=== PATIENT | male | born 1950 | race Caucasian/White ===

== ENCOUNTER 2020-04-11 12:17 | Emergency (ER) | payer OTHER | END 2020-04-11 13:16 | disposition home or self-care (01) | LOC: JVIRT 12:17 | DX: U07.1 COVID-19 (principal) | CPT/HCPCS: C9803; G2012-GT; U0003 ==

== ENCOUNTER 2020-04-13 12:22 | Emergency (ER) | payer OTHER ==
[2020-04-13] MEDS ORDERED: CASIRIVIMAB (REGN10933) 1,200 MG, IMDEVIMAB (REGN10987) 1,200 MG in SODIUM CHLORIDE 230 ML IVPB ONE (14:00)
[2020-04-13 14:52] LABS: HEMATOCRIT 46.5 % (35.4-49); HEMOGLOBIN 15.7 GM/dL (11.7-16.9); MCH 29.2 pg (25.7-33.7); MCHC 33.8 g/dl (32.0-35.9); MEAN CELL VOLUME 86.4 fl (80-96); MEAN PLT VOLUME 9.7 fl (7.5-11.1); PLATELET COUNT 163 K/MM3 (134-434); RBC 5.38 M/mm3 (4.00-5.60); RDW 13.5 % (11.9-15.9); WHITE BLOOD COUNT 4.2 K/mm3 (4.0-10.0)
[2020-04-13 15:13] LABS: POTASSIUM 4.6 mmol/L (3.5-5.1)
[2020-04-13 15:14] LABS: BLOOD UREA NITROGEN 14.9 mg/dL (7-18); CALCIUM 8.7 mg/dL (8.5-10.1)
[2020-04-13 15:18] LABS: CREATININE 1.2 mg/dL (0.55-1.3)
[2020-04-13 16:42] VITALS: TEMP 98
[2020-04-13 17:32] VITALS: BP 115/69; PULSE 70
== END 2020-04-13 17:32 | disposition home or self-care (01) ==
LOC: JER 12:22 → JCOVINFU 12:22
DX: U07.1 COVID-19 (principal)
CPT/HCPCS: 36415; 80048; 85027; 99284-25; M0243; Q0243

== ENCOUNTER 2021-04-18 11:23 | Observation (INO) | payer OTHER ==
[2021-04-18 12:39] LABS: BASO % 0.8 % (0-2.0); EOS % 2.6 % (0-4.5); HEMATOCRIT 44.9 % (35.4-49); HEMOGLOBIN 15.2 GM/dL (11.7-16.9); LYMPH % 15.4 % (8-40); MCH 28.9 pg (25.7-33.7); MCHC 33.8 g/dl (32.0-35.9); MEAN CELL VOLUME 85.5 fl (80-96); MEAN PLT VOLUME 8.5 fl (7.5-11.1); MONO % 7.5 % (3.8-10.2); NEUT % 73.7 % (42.8-82.8); PLATELET COUNT 236 10^3/uL (134-434); RBC 5.25 M/mm3 (4.00-5.60); RDW 13.9 % (11.9-15.9); WHITE BLOOD COUNT 6.8 K/mm3 (4.0-10.0)
[2021-04-18 12:52] LABS: ACTIVATED PTT 27.3 SECONDS (25.2-36.5); INR 0.97 (0.83-1.09); PROTHROMBIN TIME (PATIENT) 11.2 SEC (9.7-13.0)
[2021-04-18 12:55] LABS: CHLORIDE 109 mmol/L (98-107); SODIUM 142 mmol/L (136-145)
[2021-04-18 12:57] LABS: CALCIUM 9.1 mg/dL (8.5-10.1)
[2021-04-18 12:58] LABS: ALBUMIN 3.9 g/dl (3.4-5.0); ANION GAP 5 MMOL/L (8-16); BLOOD UREA NITROGEN 20.8 mg/dL (7-18); CO2 29 mmol/L (21-32); GLUCOSE,RANDOM 92 mg/dL (74-106)
[2021-04-18 13:01] LABS: CHOLESTEROL 168 mg/dL (50-200); CREATININE 1.2 mg/dL (0.55-1.3); SGOT/AST 17 U/L (15-37); SGPT/ALT 48 U/L (13-61)
[2021-04-18 13:02] LABS: LDL CHOLESTEROL (ONLY SJRH) 109 mg/dL (5-100); TOT PROT 7.3 g/dl (6.4-8.2); TRIGLYCERIDES 146 mg/dL (0-150)
[2021-04-18 13:03] LABS: ALK PHOS 80 U/L (45-117); BILIRUBIN,TOTAL 0.6 mg/dL (0.2-1)
[2021-04-18 13:05] LABS: HDL CHOLESTEROL 35 mg/dL (40-60)
[2021-04-18] MEDS ORDERED: MAGNESIUM SULF 50% (8.12 MEQ/2 ML-1 GM VIAL) IVPB ONE (13:05)
[2021-04-18] MEDS ORDERED: MAGNESIUM SULFATE IN WATER 2 GM/50 ML IVPB IVPB ONE (13:21)
[2021-04-18] MEDS ORDERED: levETIRAcetam 500 MG/5 ML INJECTION VIAL IVPB ONE ×2 (14:04→14:14)
[2021-04-18 19:19] LABS: URINE APPEARANCE CLEAR; URINE BILIRUBIN NEGATIVE (NEGATIVE); URINE COLOR YELLOW; URINE GLUCOSE (UA) NEGATIVE (NEGATIVE); URINE KETONE NEGATIVE (NEGATIVE); URINE LEUK ESTERASE NEGATIVE (NEGATIVE); URINE NITRITE NEGATIVE (NEGATIVE); URINE PROTEIN NEGATIVE (NEGATIVE); URINE UROBILINOGEN 0.2 mg/dL (0.2-1.0)
[2021-04-18] MEDS ORDERED: levETIRAcetam 500 MG TABLET (FP) PO SCH (22:00)
[2021-04-18] MEDS: levETIRAcetam 500 MG TABLET (FP) PO SCH (22:22)
[2021-04-19 01:17] VITALS: BMI 31.4
[2021-04-19] MEDS: levETIRAcetam 500 MG TABLET (FP) PO SCH (09:24)
[2021-04-19 14:48] VITALS: BP 109/60; PULSE 67; TEMP 97.9
== END 2021-04-19 16:47 | disposition home or self-care (01) ==
LOC: JER 11:23 → JERBED 14:05 → J4W 21:01
PROVIDERS: ADMIT Internal Medicine; ATTEND Nurse Practitioner Family
PROC: 3E033GC Introduction of Other Therapeutic Substance into Peripheral Vein, Percutaneous Approach (ICD-10-PCS; principal; 2021-04-18)
DX: I60.9 Nontraumatic subarachnoid hemorrhage, unspecified (principal); I10 Essential (primary) hypertension; I48.91 Unspecified atrial fibrillation; I34.1 Nonrheumatic mitral (valve) prolapse; M25.511 Pain in right shoulder; G89.29 Other chronic pain; E66.9 Obesity, unspecified; Z68.30 Body mass index [BMI] 30.0-30.9, adult
CPT/HCPCS: 36415; 70450-TC; 71045-TC-FY; 80053; 80061; 81003; 82550; 82962; 83036; 84484; 85025; 85610; 85730; 86850; 86900; 86901; 93005; 93010; 96374; 97116-GP; 99285-25; C9803; G0378; U0003; U0005

== ENCOUNTER 2021-05-30 13:24 | Emergency (ER) | payer OTHER ==
[2021-05-30 13:28] VITALS: BMI 30.5
[2021-05-30] MEDS ORDERED: SODIUM CHLORIDE 1,000 ML IV SCH (13:45)
[2021-05-30 15:05] VITALS: TEMP 98.1
[2021-05-30 15:07] LABS: BASO % 0.5 % (0-2.0); EOS % 2.5 % (0-4.5); HEMATOCRIT 44.4 % (35.4-49); HEMOGLOBIN 14.9 GM/dL (11.7-16.9); LYMPH % 15.8 % (8-40); MCH 28.7 pg (25.7-33.7); MCHC 33.4 g/dl (32.0-35.9); MEAN PLT VOLUME 9.3 fl (7.5-11.1); MONO % 7.5 % (3.8-10.2); NEUT % 73.7 % (42.8-82.8); PLATELET COUNT 297 10^3/uL (134-434); RBC 5.17 M/mm3 (4.00-5.60); RDW 13.5 % (11.9-15.9); WHITE BLOOD COUNT 7.2 K/mm3 (4.0-10.0)
[2021-05-30 15:14] LABS: ACTIVATED PTT 33.4 SECONDS (25.2-36.5); INR 1.01 (0.83-1.09); PROTHROMBIN TIME (PATIENT) 11.6 SEC (9.7-13.0)
[2021-05-30 15:25] LABS: ALBUMIN 3.7 g/dl (3.4-5.0); BLOOD UREA NITROGEN 16.5 mg/dL (7-18); CALCIUM 9.1 mg/dL (8.5-10.1)
[2021-05-30 15:28] LABS: CREATININE 1.1 mg/dL (0.55-1.3)
[2021-05-30 15:29] LABS: BILIRUBIN,TOTAL 0.9 mg/dL (0.2-1); TOT PROT 7.4 g/dl (6.4-8.2)
[2021-05-30 16:00] VITALS: BP 110/83; PULSE 59
== END 2021-05-30 16:01 | disposition short-term general hospital (02) ==
LOC: JER 13:24
DX: I62.03 Nontraumatic chronic subdural hemorrhage (principal); R47.01 Aphasia
CPT/HCPCS: 36415; 70450-TC; 80053; 80061; 82962; 83036; 85025; 85610; 85730; 86850; 86900; 86901; 93005; 93010; 99285-25

== ENCOUNTER 2022-11-16 04:33 | Day surgery (SDC) | payer OTHER ==
[2022-11-14 13:05] VITALS: BMI 29.7
[2022-11-16 09:02] VITALS: TEMP 98.2
[2022-11-16 09:06] VITALS: RESP 19
[2022-11-16 09:17] VITALS: BP 115/65; PULSE 54
== END 2022-11-16 09:00 | disposition home or self-care (01) ==
LOC: JASU-ENDO 04:33
PROVIDERS: ATTEND Internal Medicine Gastroenterology
PROC: 0DBL8ZX Excision of Transverse Colon, Via Natural or Artificial Opening Endoscopic, Diagnostic (ICD-10-PCS; 2022-11-16)
PROC: 0DBN8ZX Excision of Sigmoid Colon, Via Natural or Artificial Opening Endoscopic, Diagnostic (ICD-10-PCS; 2022-11-16)
PROC: 0DBP8ZX Excision of Rectum, Via Natural or Artificial Opening Endoscopic, Diagnostic (ICD-10-PCS; 2022-11-16)
PROC: 0DBH8ZX Excision of Cecum, Via Natural or Artificial Opening Endoscopic, Diagnostic (ICD-10-PCS; principal; 2022-11-16 08:00)
DX: K64.8 Other hemorrhoids (principal); K57.30 Diverticulosis of large intestine without perforation or abscess without bleeding; Z87.19 Personal history of other diseases of the digestive system; Z86.010 Personal history of colon polyps
CPT/HCPCS: 88305-TC; 88342-TC